=== PATIENT | female | born 1985 | race Caucasian/White ===

== ENCOUNTER 2018-06-03 09:07 | Emergency (ER) | payer OTHER ==
[2018-06-03 09:20] VITALS: TEMP 97.7; BMI 23.1
--- NOTE | 2018-06-03 09:34 | PDOC ---
History of Present Illness - General Chief Complaint: Lightheaded Stated Complaint: LIGHTHEADED Time Seen by Provider: 06/03/18 09:11 - History of Present Illness Initial Comments: 06/03/18 09:36 32yo female presents ambulatory from home for eval of a valdivia - feels like a tight band around her head. Started last night. No ear pain. No rhinorrhea. No sore throat. No f/c. No neck pain. States she felt lightheaded with the headache last night and still feels lightheaded this AM. States she felt nervous last night and developed palpitations, which have since resolved. C/o nausea. No vomiting. No diarrhea. No abd pain. No dysuria. Has an IUD x 4 years. No calf cramping or leg swelling. No other complaints. Neuro intact. Pmhx: denies Pshx: denies Meds: IUD Allergies: NKDA Past History - Past Medical History Allergies/Adverse Reactions: Allergies Allergy/AdvReac Type Severity Reaction Status Date / Time No Known Allergies Allergy Verified 06/03/18 09:09 Home Medications: Ambulatory Orders NK [No Known Home Medication] 05/06/16 COPD: No - Reproductive History Is Patient Now?: No - Suicide/Smoking/Psychosocial Hx Smoking Status: No Smoking History: Never smoked Have you smoked in the past 12 months: No Number of Cigarettes Smoked Daily: 0 Hx Alcohol Use: No Drug/Substance Use Hx: No Substance Use Type: None Review of Systems - Review of Systems Able to Perform ROS?: Yes Is the patient limited Ug[place]an proficient: No Constitutional: No: Chills, Fever HEENTM: No: Eye Pain, Nose Pain, Nose Congestion, Throat Pain Respiratory: No: Cough, Shortness of Breath Cardiac (ROS): Yes: Lightheadedness, Palpitations. No: Chest Pain, Edema ABD/GI: Yes: Nausea. No: Diarrhea, Vomiting, Abdominal cramping : No: Burning, Dysuria Musculoskeletal: No: Back Pain, Neck Pain Neurological: Yes: Headache. No: Numbness, Paresthesia, Tingling, Weakness, Ataxia All Other Systems: Reviewed and Negative *Physical Exam - Vital Signs Last Vital Signs Temp Pulse Resp BP Pulse Ox 97.7 F 86 15 115/68 99 06/03/18 09:08 06/03/18 09:08 06/03/18 09:08 06/03/18 09:08 06/03/18 09:08 - Physical Exam General Appearance: Yes: Nourished, Appropriately Dressed. No: Apparent Distress HEENT: positive: EOMI, ERIK, Normal ENT Inspection, Pharynx Normal. negative: Rhinorrhea Neck: positive: Trachea midline, Supple. negative: Tender, Rigid, Lymphadenopathy (R), Lymphadenopathy (L) Respiratory/Chest: positive: Lungs Clear, Normal Breath Sounds. negative: Respiratory Distress Cardiovascular: positive: Regular Rhythm, Regular Rate, S1, S2. negative: Edema Gastrointestinal/Abdominal: positive: Normal Bowel Sounds, Soft. negative: Guarding, Rebound, Tenderness Musculoskeletal: positive: Normal Inspection. negative: CVA Tenderness Extremity: positive: Normal Capillary Refill, Normal Inspection. 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, Fully Oriented, Alert, Normal Mood/ Affect, Normal Response, Motor Strength 5/5, Other (normal heel to gardner) Heart Score/ECG Review - ECG Intrepretation Comment:: 06/03/18 10:24 sinus at 70, nl axis, nl interval, t wave inversions III which are nonspecific, no acute st/t wave findings ED Treatment Course - LABORATORY CBC & Chemistry Diagram: 06/03/18 10:00 06/03/18 10:00 Medical Decision Making - Medical Decision Making 06/03/18 09:46 a/p: 32yo female with headache and lightheaded and an episode of palpitations last night -neuro intact -no meningeal signs -pt is nontoxic in appearance -will send labs, ekg -will medicate with ivf hydration, reglan and tylenol -will monitor and reassess 06/03/18 10:37 re-eval: pt states feeling better valdivia resolved lightheadedness improving will replace magnesium discussed lab results with the patient 06/03/18 11:07 pt denies urinary complaints 06/03/18 11:52 pt feeling much better tolerated po intake no valdivia or lightheaded stable for dc to home discussed tylenol or motrin for valdivia and drinking plenty of fluids for the dizziness *DC/Admit/Observation/Transfer Diagnosis at time of Disposition: Light-headed feeling, Cephalgia - Discharge Dispostion Disposition: HOME Condition at time of disposition: Stable Decision to Admit order: No - Referrals Referrals: Nitza Guerra MD [Primary Care Provider] - - Patient Instructions Printed Discharge Instructions: DI for Dizziness-Nonvertigo Additional Instructions: Please drink plenty of fluids. Please take tylenol or motrin as needed for the headache. Please follow up with your PMD in 2 days for a re-eval. Please return to the ED with any further concerns or complaints. - Post Discharge Activity
[2018-06-03] MEDS ORDERED: SODIUM CHLORIDE 0.9% 1000 ML INFUS.BAG IV ONE (09:35)
[2018-06-03] MEDS ORDERED: METOCLOPRAMIDE HCL INJECTION 10 MG/2 ML VIAL IVPUSH ONE (09:35)
[2018-06-03] MEDS ORDERED: ACETAMINOPHEN 1000 MG/100 ML VIAL (NON FORMULARY) IVPB ONE (09:35)
[2018-06-03] MEDS ORDERED: METOCLOPRAMIDE HCL INJECTION 10 MG/2 ML VIAL ONE (09:44)
[2018-06-03] MEDS ORDERED: ACETAMINOPHEN INJECTION 100 ML IVPB ONE (09:44)
[2018-06-03 10:04] LABS: HCG,QUALITATIVE URINE Negative; URINE APPEARANCE Clear; URINE BILIRUBIN Negative (NEGATIVE); URINE COLOR Yellow; URINE GLUCOSE (UA) Negative (NEGATIVE); URINE KETONE Negative (NEGATIVE); URINE LEUK ESTERASE TRACE (NEGATIVE); URINE NITRITE Negative (NEGATIVE); URINE PROTEIN Negative (NEGATIVE); URINE UROBILINOGEN 0.2 (0.2-1.0)
[2018-06-03 10:17] LABS: BASO % 0.9 % (0-2.0); EOS % 2.9 % (0-4.5); HEMATOCRIT 41.6 % (32.4-45.2); HEMOGLOBIN 13.8 GM/dl (10.7-15.3); LYMPH % 26.1 % (8-40); MCH 32.1 pg (25.7-33.7); MCHC 33.2 g/dl (32.0-36.0); MEAN CELL VOLUME 96.6 fl (80-96); MEAN PLT VOLUME 8.2 fl (7.5-11.1); MONO % 7.4 % (3.8-10.2); NEUT % 62.7 % (42.8-82.8); PLATELET COUNT 252 K/MM3 (134-434); WHITE BLOOD COUNT 4.5 K/mm3 (4.0-10.8)
[2018-06-03 10:27] LABS: ALBUMIN 4.3 g/dl (3.5-5.0); ALK PHOS 51 U/L (32-92); ANION GAP 8 MMOL/L (8-16); BILIRUBIN,TOTAL 0.5 mg/dl (0.2-1.0); BLOOD UREA NITROGEN 9 mg/dl (7-18); CALCIUM 9.5 mg/dl (8.4-10.2); CHLORIDE 104 mmol/L (98-107); CO2 27 mmol/L (22-28); GLUCOSE,RANDOM 93 mg/dl (74-106); MAGNESIUM 1.6 mg/dL (1.8-2.4); POTASSIUM 3.8 mmol/L (3.5-5.1); SGOT/AST 17 U/L (10-42); SGPT/ALT 22 U/L (10-40); SODIUM 139 mmol/L (136-145); TOT PROT 6.7 g/dl (6.4-8.3)
[2018-06-03 10:28] LABS: CREATININE < 0.6 mg/dl (0.6-1.3)
[2018-06-03] MEDS ORDERED: MAGNESIUM SULF 50% (8.12 MEQ/2 ML-1 GM VIAL) IVPB ONE (10:31)
[2018-06-03] MEDS ORDERED: MAGNESIUM SULF 50% (8.12 MEQ/2 ML-1 GM VIAL) ONE (10:32)
[2018-06-03 11:01] LABS: EPI CELLS 2+ /HPF; URINE BACTERIA 2+ /hpf (NEGATIVE); URINE RBC 0-3 /hpf (0-3); URINE WBC 0-3 (0-5)
[2018-06-03 12:03] VITALS: BP 111/61; PULSE 82
--- NOTE | 2018-06-03 23:51 | EKG ---
Test Reason : Blood Pressure : / mmHG Vent. Rate : 070 BPM Atrial Rate : 070 BPM P-R Int : 128 ms QRS Dur : 076 ms QT Int : 380 ms P-R-T Axes : 007 053 013 degrees QTc Int : 410 ms NORMAL SINUS RHYTHM NORMAL ECG NO PREVIOUS ECGS AVAILABLE Confirmed by MELISSA ULLOA, MAXWELL ([id number]) on 06/03/2018 11:51:41 PM Referred By: ESTEBAN Confirmed By:MAXWELL TORRES MD
== END 2018-06-03 12:07 | disposition home or self-care (01) ==
LOC: FER 09:07
PROC: 3E033NZ Introduction of Analgesics, Hypnotics, Sedatives into Peripheral Vein, Percutaneous Approach (ICD-10-PCS; principal; 2018-06-03)
PROC: 3E033GC Introduction of Other Therapeutic Substance into Peripheral Vein, Percutaneous Approach (ICD-10-PCS; 2018-06-03)
PROC: 3E0337Z Introduction of Electrolytic and Water Balance Substance into Peripheral Vein, Percutaneous Approach (ICD-10-PCS; 2018-06-03)
DX: R42 Dizziness and giddiness (principal); R51 Headache
CPT/HCPCS: 36415; 80053; 81003; 81015; 83735; 84703; 85025; 93005; 99283-25; J0131; J7030

== ENCOUNTER 2018-12-23 13:00 | Emergency (ER) | payer OTHER | END 2018-12-23 17:00 | disposition home or self-care (01) | LOC: FER 13:00 ==

== ENCOUNTER 2019-01-28 23:15 | Emergency (ER) | payer OTHER ==
[2019-01-28 23:39] VITALS: BP 116/78; PULSE 77; TEMP 98.3; BMI 23.0
[2019-01-29] MEDS ORDERED: KETOROLAC TROMETHAMINE 30 MG/1 ML VIAL IM ONE (00:16)
[2019-01-29] MEDS ORDERED: ACETAMINOPHEN 325 MG TABLET (FP) PO ONE (00:17)
[2019-01-29] MEDS ORDERED: LIDOCAINE 5% TOPICAL PATCH TP ONE (00:17)
[2019-01-29] MEDS ORDERED: ACETAMINOPHEN 325 MG TABLET (FP) ONE (00:19)
[2019-01-29] MEDS ORDERED: KETOROLAC TROMETHAMINE 30 MG/1 ML VIAL ONE (00:20)
--- NOTE | 2019-01-29 00:29 | PDOC ---
Documentation entered by Varinder Donaldson SCRIBE, acting as scribe for Khadijah Alvarez MD. Khadijah Alvarez MD: This documentation has been prepared by the Mendoza silva Renju, SCRIBE, under my direction and personally reviewed by me in its entirety. I confirm that the documentation accurately reflects all work, treatment, procedures, and medical decision making performed by me. History of Present Illness - General Chief Complaint: Pain Stated Complaint: BACK PAIN X 2 WEEKS Time Seen by Provider: 01/28/19 23:27 History Source: Patient Exam Limitations: No Limitations - History of Present Illness Initial Comments: 01/29/19 00:26 HPI 33 YOF with h/o UTIs presenting with lower back pain x 2 weeks. denies trauma/ falls. back pain exacerbated by sitting forward and movement; improved while sleeping and lying down. recently seen 1 month ago in the ED and dx'd with UTI, finished abx and f/u PMD who stated she had resolved UTI Denies fever, chills, chest pain, SOB, palpitation, dizziness, weakness, N, V, D , abdominal pain, bladder and bowel problems, leg swelling Allergies: None Past Medical History: as documented in EMR/HPI Social history: No tobacco, ETOH or drug use. Surgical history: none Meds: as documented in EMR 01/29/19 00:50 Past History - Past Medical History Allergies/Adverse Reactions: Allergies Allergy/AdvReac Type Severity Reaction Status Date / Time No Known Allergies Allergy Verified 01/28/19 23:35 Home Medications: Ambulatory Orders Cyclobenzaprine HCl [Flexeril 10 mg] 10 mg PO TID PRN #15 tablet 01/29/19 Lidocaine 5% Patch [Lidoderm Patch -] 1 patch TP DAILY PRN #7 patch 01/29/19 COPD: No - Suicide/Smoking/Psychosocial Hx Smoking Status: No Smoking History: Never smoked Have you smoked in the past 12 months: No Number of Cigarettes Smoked Daily: 0 Hx Alcohol Use: No Drug/Substance Use Hx: No Substance Use Type: None Review of Systems - Review of Systems Able to Perform ROS?: Yes Comments:: 01/29/19 00:27 Constitutional: no fevers or chills. HEENT: no headache or dizziness. No congestion. No visual/hearing disturbances. CVS: no cp or syncope. Resp: no sob. No cough. Gastrointestinal: no abdominal pain, nausea or vomiting. Genitourinary: no dysuria, urgency or frequency MUSCULOSKELETAL: No joint pain and swelling. No neck pain. +back pain SKIN: no redness or skin changes, no discharge, no rash. No wounds. Hematologic: no easy bruising/bleeding. NEUROLOGIC: No headache, dizziness, LOC or altered mental status. No weakness, numbness or tingling. Psych: no anxiety or depression Allergic/Immunologic: no allergies All other systems reviewed and negative, or as documented in HPI. *Physical Exam - Vital Signs Last Vital Signs Temp Pulse Resp BP Pulse Ox 98.3 F 77 15 116/78 100 01/28/19 23:36 01/28/19 23:36 01/28/19 23:36 01/28/19 23:36 01/28/19 23:36 - Physical Exam Comments: 01/29/19 00:28 General: Well appearing, awake and alert, NAD. HEENT: NCAT, PERRL, EOMI, clear conjunctiva, anicteric, moist mucus membranes, clear oropharynx, no oral lesions.. Neck: neck supple, FROM Resp: CTAB, normal and even respirations, no respiratory distress CVS: RRR, no murmurs, 2+ peripheral pulses throughout, no peripheral edema Abdomen: soft, NTND, no rebound or guarding. No CVAT. Back: normal inspection and ROM; +lumbar and rt paravertebral TTP MSK: no edema, HAY x4, ROM intact. No clubbing or cyanosis. normal bulk and tone. Neuro: alert, oriented appropriately; no focal neurologic deficits; 5/5 plantar and dorsiflexion, SILT Skin: warm and well perfused, cap refill <2 sec, normal color ED Treatment Course - Medications Given in the ED: ED Medications Discontinued Medications Generic Name Dose Route Start Last Admin Trade Name Freq PRN Reason Stop Dose Admin Acetaminophen 650 mg 01/29/19 00:17 01/29/19 00:24 Tylenol - PO 01/29/19 00:18 650 mg ONCE ONE Administration Ketorolac Tromethamine 30 mg 01/29/19 00:16 01/29/19 00:24 Toradol Injection - IM 01/29/19 00:17 30 mg ONCE ONE Administration Lidocaine 1 patch 01/29/19 00:17 01/29/19 00:24 Lidoderm Patch - TP 01/29/19 00:18 1 patch ONCE ONE Administration Medical Decision Making - Medical Decision Making 01/29/19 00:29 VS reviewed wnl. DDx back pain: back strain, lumbago, sciatica, radiculopathy, spinal stenosis. Muscle spasm. Lumbar radiculopathy. UTI, pyelo. Clinically doubt based on exam and clinical history: cord compression or cauda equina, with low suspicion and NO red flag sx such as age>50, malignancy, weight loss, trauma, fevers, IVDU, lumbar/spinal procedures, bowel and bladder incontinence/retention, urinary sx, neurologic deficits or changes. given analgesia here, appears very msk, as point tenderness elicited, UA neg for infection, neg preg test. discharge in stable condition, return precautions, supportive care and analgesia regimen. PCP followup, avoid triggers/precipitants rx meds, muscle relaxant and topical analgesia in addition to otc regimen pt amenable to plan, made aware of impression and plan and agreeable 01/29/19 00:53 01/29/19 01:14 01/29/19 01:18 *DC/Admit/Observation/Transfer Diagnosis at time of Disposition: Back pain - Discharge Dispostion Disposition: HOME Condition at time of disposition: Stable Decision to Admit order: No - Prescriptions Prescriptions: Cyclobenzaprine HCl [Flexeril 10 mg] 10 mg PO TID PRN #15 tablet PRN Reason: Muscle Spasms Lidocaine 5% Patch [Lidoderm Patch -] 1 patch TP DAILY PRN #7 patch PRN Reason: Pain - Referrals Referrals: Nitza Guerra MD [Non Staff, Medical] - - Patient Instructions Printed Discharge Instructions: DI for Low Back Pain Additional Instructions: 1) Please follow-up with your primary care doctor in the next 1-2 days. Please call tomorrow for for any urgent issues. Dr Guerra is your primary doctor 2) You were given a copy of the tests performed today. Please bring the results with you and review them with your primary care doctor. Your laboratory /urine results were normal, follow up on culture to check for infection 3) If you have any worsening of symptoms or any other concerns please return to the ED immediately. Return if worsening symptoms including fevers, headache, vomiting, visual or hearing disturbances, abdominal pain, chest pain, shortness of breath, syncope, dehydration, inability to take things by mouth/vomiting, altered mental status, neurologic changes or worsening concerning symptoms. 4) Please continue taking your home medications as directed. your medications on discharge include lidoderm patch topically, 12 hours on and 12 hours off; you can also take muscle relaxant three times a day as needed, this can make you sleepy/drowsy, so do not operate machinery or drive when taking this medication . side effects may include upset stomach, abdominal pain, vomiting, or diarrhea. do not drink alcohol with your medications. Stay well hydrated and rest adequately. Make an appointment. If you cannot follow-up with your primary care doctor please return to the ED - Post Discharge Activity
[2019-01-29 01:07] LABS: EPI CELLS 1.6 /HPF (0-5/HPF); HYALINE CASTS 1 /lpf (0-8); PH,URINE 6.5 (5.0-8.0); URINE APPEARANCE CLEAR; URINE BACTERIA 67.6 /hpf (NEGATIVE); URINE BILIRUBIN NEGATIVE (NEGATIVE); URINE COLOR YELLOW; URINE GLUCOSE (UA) NEGATIVE (NEGATIVE); URINE KETONE NEGATIVE (NEGATIVE); URINE LEUK ESTERASE TRACE (NEGATIVE); URINE NITRITE NEGATIVE (NEGATIVE); URINE PROTEIN NEGATIVE (NEGATIVE); URINE RBC 1 /hpf (0-4); URINE UROBILINOGEN 0.2 mg/dL (0.2-1.0); URINE WBC 2 /hpf (0-5)
== END 2019-01-29 01:23 | disposition home or self-care (01) ==
LOC: FER 23:15
DX: M54.5 Low back pain (principal)
CPT/HCPCS: 81003; 84703; 87086; 99282-25

== ENCOUNTER 2019-03-11 14:51 | Emergency (ER) | payer OTHER ==
[2019-03-11 14:55] VITALS: BMI 26.2
[2019-03-11 14:59] VITALS: BP 118/81; PULSE 77; TEMP 98.9
--- NOTE | 2019-03-11 15:14 | PDOC ---
History of Present Illness - General Chief Complaint: Pain, Acute Stated Complaint: NECK PAIN Time Seen by Provider: 03/11/19 15:14 History Source: Patient Exam Limitations: No Limitations - History of Present Illness Initial Comments: 33 year old female with no PMH presented to ED for left ear pain x3 days. Pt reported she returned yesterday from a beach vacation in which she was in and out of the ocean/pool for 7 days. Pt reported migration of pain from her ear to her head. Pt denied neck pain, fever, chills, vomiting, chest pain, shortness of breath, lightheadedness. Pt reported she took Tylenol in the AM and Advil in the afternoon, but had minimal improvement of her pain. Past History - Past Medical History Allergies/Adverse Reactions: Allergies Allergy/AdvReac Type Severity Reaction Status Date / Time No Known Allergies Allergy Verified 03/11/19 14:52 Home Medications: Ambulatory Orders Ciprofloxacin HCl [Cipro] 500 mg PO BID #20 tablet 03/11/19 Ciprofloxacin HCl/Dexameth [Ciprodex Otic Suspension] 3 drop BID 10 Days #1 bottle 03/11/19 COPD: No - Suicide/Smoking/Psychosocial Hx Smoking Status: No Smoking History: Never smoked Have you smoked in the past 12 months: No Number of Cigarettes Smoked Daily: 0 Hx Alcohol Use: No Drug/Substance Use Hx: No Substance Use Type: None Review of Systems - Review of Systems Able to Perform ROS?: Yes Comments:: General: denied fever, chills, generalized weakness. HEENT: admitted to ear pain. denied sore throat, rhinorrhea. Cardiovascular: denied chest pain, palpitations, syncope, diaphoresis. Respiratory: denied shortness of breath, cough, sputum production, hemoptysis. Gastrointestinal: denied abdominal pain, nausea, vomiting, diarrhea, constipation, blood in stool. Genitourinary: denied dysuria, increased urinary frequency, hematuria, urinary incontinence, flank pain. Back: denied back pain. Musculoskeletal: denied joint pain, muscle pain, joint swelling. Neurological: admitted to headache. denied dizziness, numbness, tingling, weakness. Integumentary: denied rash, laceration, abrasion. Hematologic/Lymphatic: denied bruising or bleeding. *Physical Exam - Vital Signs Last Vital Signs Temp Pulse Resp BP Pulse Ox 98.9 F 77 14 118/81 100 03/11/19 14:51 03/11/19 14:51 03/11/19 14:51 03/11/19 14:51 03/11/19 14:51 - Physical Exam Comments: Constitutional: Well-nourished, Well-developed, appearing stated age. HEENT: head is normocephalic, atraumatic. EOMI. PERRLA. pain with pulling of left pinna. left ear canal erythematous. left TM no erythema or bulging. right ear canal negative for erythema. right TM no bulging, no erythema. tenderness to palpation of posterior auricular area. no posterior pharyngeal erythema. no tonsillar swelling or exudates bilaterally. uvula midline. no peritonsillar swelling, tenderness or abscess. no jaw tenderness or misalignment. Neck: supple. Full ROM. Cardiovascular: regular heart rhythm. no murmurs. no pericardial friction rub. Respiratory: clear to auscultation bilaterally. no crackles, rhonchi or wheezing. no stridor. Gastrointestinal: soft, nontender. normal bowel sounds. no rebound, guarding, masses. Extremities: peripheral pulses intact. no lower extremity edema. Neurological: CN 2-12 grossly intact. moves all four extremities. Psych: awake, alert, oriented x3. follows commands. answers questions appropriately. Medical Decision Making - Medical Decision Making 33 year old female with above PMH presented to ED for left ear pain. Examination consistent with Otitis Externa with posterior auricular tenderness. no mastoid tenderness. Initial Vital Signs Temp Pulse Resp BP Pulse Ox 98.9 F 77 14 118/81 100 03/11/19 14:51 03/11/19 14:51 03/11/19 14:51 03/11/19 14:51 03/11/19 14:51 Afebrile. No tachycardia. No tachypnea. No hypotension. No hypoxia on room air. Labs ordered: none Imaging ordered: none Medications ordered: Tylenol 975 mg PO once, Cipro 500 mg PO once Pt discharged. Pt prescribed Cipro drops and PO. *DC/Admit/Observation/Transfer Diagnosis at time of Disposition: Otitis externa - Discharge Dispostion Disposition: HOME Condition at time of disposition: Stable Decision to Admit order: No - Prescriptions Prescriptions: Ciprofloxacin HCl [Cipro] 500 mg PO BID #20 tablet Ciprofloxacin HCl/Dexameth [Ciprodex Otic Suspension] 3 drop BID 10 Days #1 bottle - Referrals - Patient Instructions Printed Discharge Instructions: DI for Otitis Externa Additional Instructions: You have an external ear infection. I have sent an antibiotic pill and antibiotic drops to your pharmacy. Use as advised on label. Follow up with your primary care doctor within 3 days. Your care is not complete until you follow up. Take Tylenol over the counter for pain. Take as advised on labels. Return to the Emergency Department for increasing pain despite tylenol use, fever, discharge from ear, vomiting, dizziness, numbness, weakness, tingling, gait disturbance, neck pain, visual changes or any other new, worsening or concerning symptoms. - Post Discharge Activity Forms/Work/School Notes: Back to Work
[2019-03-11] MEDS ORDERED: ACETAMINOPHEN 325 MG TABLET (FP) PO ONE (15:19)
[2019-03-11] MEDS ORDERED: ACETAMINOPHEN 325 MG TABLET (FP) ONE (15:38)
[2019-03-11] MEDS ORDERED: CIPROFLOXACIN 500 MG TABLET (RESTRICTED TO ID) PO ONE (15:39)
[2019-03-11] MEDS ORDERED: CIPROFLOXACIN 250 MG TABLET (RESTRICTED TO ID) PO ONE (15:39)
--- NOTE | 2019-03-11 15:44 | PDOC ---
Attending Attestation - Resident Resident Name: MontezKhadra - ED Attending Attestation I have performed the following: I have examined & evaluated the patient, The case was reviewed & discussed with the resident, I agree w/resident's findings & plan - HPI HPI: 03/11/19 15:41 healthy 33y/o F p/w progressive L ear pain for 3 days. Pt just returned from pool/beach vacation for past 7 days, noted mild onset 3d ago now progressing in severity. pain and swelling to L ear without generalized headache/photophobia/ vision or hearing change/f/c/neck stiffness. Slight L sore throat but no odynophagia or dysphagia. took apap/motrin without relief, presents for evaluation. distant h/o otitis media, no recurring sinus or ear infections in the past. - Physicial Exam PE: 03/11/19 15:43 afebrile, vss well appearing seated in stretcher erythematous/swollen L external ear/pinna with ttp, + postauricular lymph node swelling and tenderness, no mastoid erythema/swelling/ttp. op clear without swelling or exudate. + submandibular LAD. neck supple. neuro exam normal - Medical Decision Making 03/11/19 15:44 33y/o F with L otitis externa, no evidence of media or mastoid involvement. neuro intact without evidence of deep tissue involvement or neuro compromise. antibiotics ENT referral prn understands strict return criteria
== END 2019-03-11 15:44 | disposition home or self-care (01) ==
LOC: FER 14:51
DX: H60.92 Unspecified otitis externa, left ear (principal)
CPT/HCPCS: 99282-25